=== PATIENT | male | born 1970 | race Two or more races ===

== ENCOUNTER 2024-03-10 13:38 | Emergency (ER) | payer BC, OTHER ==
[~2024-03-10] VITALS: Ht 162.6 cm; Wt 77.4 kg
[2024-03-10 15:31] VITALS: PULSE 89; RESP 20; TEMP 98.5; O2SAT 95
[2024-03-10] MEDS: cloNIDine HCL 0.1 MG TAB PO ONE (15:37)
[2024-03-10 17:01] VITALS: BP 159/98
[2024-03-10] MEDS ORDERED: IBUP-1454 PO (17:03)
[2024-03-10] MEDS ORDERED: MAGN400T40 PO (17:03)
[2024-03-10] MEDS ORDERED: RIBO400T OR (17:03)
== END 2024-03-10 17:04 | disposition home or self-care (01) ==
LOC: ER 13:39
DX: I10 Essential (primary) hypertension (principal); R51.9 Headache, unspecified
CPT/HCPCS: 70450